=== PATIENT | female | born 1955 | race Caucasian/White ===

== ENCOUNTER 2024-08-11 08:09 | Day surgery (SDC) | payer OTHER, BC ==
[2024-08-10 09:09] VITALS: BMI 28.4
[2024-08-11] MEDS: PHENYLEPHRINE 2.5% OPTHALMIC DROP 2ML BOTTLE ONE (08:25)
[2024-08-11] MEDS: CIPROFLOXACIN 0.3% EYE DROPS 5 ML BOTTLE ONE (08:25)
[2024-08-11] MEDS: CYCLOPENTOLATE 2% OPHTH SOLN 2 ML BOTTLE ONE (08:25)
[2024-08-11] MEDS: TROPICAMIDE 1% 3 ML EYE DROPS ONE (08:25)
[2024-08-11 08:38] VITALS: RESP 18
[2024-08-11] MEDS ORDERED: MIDAZOLAM HCL 2 MG/2 ML SINGLE DOSE VIAL ONE (08:39)
[2024-08-11] MEDS ORDERED: NEO/POLYMYX B SULF/DEXAMETH OPHTHALMIC 5ML BOTTLE ONE (09:03)
[2024-08-11] MEDS ORDERED: CARBACHOL 0.01% INTRA-OCULAR 1.5 ML VIAL ONE (09:03)
[2024-08-11] MEDS ORDERED: TETRACAINE 0.5% OPHTH SOLN 2 ML BOTTLE ONE (09:03)
[2024-08-11] MEDS ORDERED: LIDOCAINE 1% P/F 10 MG/ML VIAL ONE (09:03)
[2024-08-11] MEDS ORDERED: BSS (NA/CA/MG/K) BALANCED SALT SOLUTION OPHTH SOLN 15 ML BOTTLE ONE (09:03)
[2024-08-11] MEDS ORDERED: EPINEPHrine 1:1000 P/F - 1 MG/ML AMP ONE (09:03)
[2024-08-11 10:36] VITALS: TEMP 97.6
[2024-08-11 11:08] VITALS: BP 130/74; PULSE 78
== END 2024-08-11 10:58 | disposition home or self-care (01) ==
LOC: FASU 08:09
PROVIDERS: ATTEND Ophthalmology
PROC: 08RK3JZ Replacement of Left Lens with Synthetic Substitute, Percutaneous Approach (ICD-10-PCS; principal; 2024-08-11 10:13)
DX: H26.8 Other specified cataract (principal)
CPT/HCPCS: 66984; V2632